=== PATIENT | female | born 1970 | race Caucasian/White ===

== ENCOUNTER → 2023-04-09 15:40 | Outpatient (REF) | payer BC, SELFPAY | LOC: HWRAD 15:40 | PROVIDERS: ATTENDING PHYSICIAN Internal Medicine | DX: M25.552 Pain in left hip (principal) | CPT/HCPCS: 73502 ==

== ENCOUNTER 2023-08-09 15:12 | Emergency (ER) | payer BC, SELFPAY ==
[2023-08-09 15:13] VITALS: BP 158/95
--- NOTE | 2023-08-09 15:47 | ED.GENMED ---
History of Present Illness
General
Chief Complaint: Musculo-Skeletal Complaint
Source: patient
Exam Limitations: none
Time Seen by Provider: 08/09/23 15:40
Travel History
Have you had any contact with someone who has COVID-19?: No
Do you have any symptoms of coronavirus? Fever > 100 degrees, chills, cough, shortness of breath, sore throat, loss of taste or smell, muscle aches, or headache?: No
History of Present Illness
History of Present Illness:
See MDM
Past History
Past History
ED Past Medical History: HTN, Hypothyroidism, Psychiatric (anxiety, Depression) and Other (Kidney stones, IBS, Anemia, Vertigo, Anemia, )
ED Past Surgical History: , Gynecological (Hysterectomy October 2019) and Urological (Stents)
Social History
Tobacco: Non-smoker
Alcohol: Occasional
Drug: None
Personal:
Living: with family (4 children)
Employment: Employed
Family History
Family History: Other (Noncontributory)
Phy Exam
Physical Exam
Physical Exam:
See MDM
Course
Orders/Labs/Results
Orders:
Orders
08/09/23 15:15
CR Knee- Right 4 Or More View* Urgent
Comment:
Reason For Exam: pain
08/09/23 15:45
Oxycodone/Acetaminophen [Percocet 5/325] 1 tablet PO NOW STA
US Periph Venous LOWER Ext RT Urgent
Comment:
Reason For Exam: Right popliteal pain
08/09/23 15:46
Ondansetron Orally Disint [Zofran Odt (Orally Disintegrating)] 4 mg PO NOW STA
Vital Signs
Initial and Last Documented VS:
Initial Vital Signs
Temp Pulse Resp BP Pulse Ox
98.2 F 78 20 158/95 98
08/09/23 15:13 08/09/23 15:13 08/09/23 15:13 08/09/23 15:13 08/09/23 15:13
Last Documented Vital Signs
Temp Pulse Resp BP Pulse Ox
98.2 F 78 20 158/95 98
08/09/23 15:13 08/09/23 15:13 08/09/23 15:13 08/09/23 15:13 08/09/23 15:13
MDM/Problems Addressed
Differential Diagnosis Includes:
HPI and MDM Narrative:
52-year-old female presenting with right knee pain. She localizes the pain behind her knee. Patient states that she noticed some pain few weeks ago when she had increased strain on it during a school event. Since then, she has been limping on it.
Today, she felt she heard a pop and has been having trouble bearing weight on her leg. Again, she localizes pain to the back of the knee and not the front of the knee.
X-ray was performed in triage. No obvious fracture. Palpation of the popliteal fossa elicits pain. Will obtain ultrasound rule DVT versus Perrin's cyst
Physical exam
General: Well appearing and non-toxic
HEENT: protecting airway
Neck: appears supple
CV: No evidence of cyanosis
Resp: No accessory muscle use
Abd: Non-distended
Extremities: No deformities. Right knee joint stable. Negative Ute test. Tenderness to popliteal fossa. Distal extremity neurovascular intact
Neuro: alert
Psych: Normal affect
Skin: Intact
Problems Addressed including Acute and Chronic Conditions affecting care:
1. Right knee pain
Acuity: acute
Prognosis: stable
Details: Given location of pain, will obtain ultrasound to rule out DVT versus Perrin's cyst
Updates
X-ray negative for fracture. Ultrasound negative for Perrin's cyst or DVT. Discussed the possibility of ligamentous injury. Will place in knee immobilizer and crutches. She has orthopedic follow-up in a few days
Differential Diagnosis (but not limited to): DVT, Perrin's cyst, ligament injury
Testing considered: CT knee
Drug therapy (if applicable): OTC meds, please see d/c instruction regarding Rx drugs
Amount and/or Complexity of Data Reviewed
Clinical info obtained from: Patient
External data reviewed: N/A
Labs I independently reviewed (but not limited to): N/A
Radiology: X-ray independently reviewed: Knee x-ray negative for acute fracture
Pulse Ox: not hypoxic
EKG independently reviewed: N/A
Steam Trap Worker: N/A
Critical Care: N/A
Risk of Complication:
Social Determinants of health: Good social support
Discussed with other providers: N/A
Escalation of Care includes Admit/Obs: After being observed in the Emergency Department, pt stable for discharge.
Occasional wrong word or 'sound a like' substitutions may have occurred due to the inherent limitations of voice recognition software. Read the chart carefully and recognize, using context, where substitutions have occurred.
*Critical Care Note
Total Time (30-74mins, 75-104mins- exclusive of procedures): Not Applicable
ED Attending Note
-
Portions of this chart may have been created with voice recognition software.� Occasional wrong word or��sound alike� substitutions may have occurred due to the inherent limitations of voice recognition software.
Discharge Plan
Departure
Patient Disposition: Home (Routine Discharge)
Date of Disposition: 08/09/23
Time of Disposition: 18:20
Patient with high blood pressure during this ER visit?: Yes
Discharge Problem:
Right knee sprain
Instructions: Knee Sprain (DC), BLOOD PRESSURE
Prescriptions:
New
oxycodone 5 mg tablet
5 mg PO Q8H PRN (Reason: Pain) Qty: 10 0RF
ondansetron 4 mg Tablet,Disintegrating
4 mg PO BIDPRN PRN (Reason: nausea/vomiting) Qty: 10 0RF
No Action
escitalopram oxalate 20 MG tablet
20 mg PO DAILY
lisinopril 20 MG tablet
20 mg PO DAILY
levothyroxine 137 MCG capsule
125 mcg PO DAILY
famotidine [Pepcid] 20 mg Tablet
20 mg PO DAILY
sulfamethoxazole-trimethoprim [Bactrim DS] 800-160 mg tablet
1 tab PO BID Qty: 6 0RF
Referrals:
Kodak Campbell MD [Family Provider] -
Activity Restrictions/Additional Instructions:
Please keep your orthopedic appointment and please return for worsening symptoms.
Interventions
Interventions:
*Risk Screen - Suicide Last Done: 08/09/23 15:13
*General Assessment Last Done: 08/09/23 15:13
*Neglect/Abuse Screening Last Done: 08/09/23 15:13
Discharge Date and Time
Print Language: SAO TOMEAN
[2023-08-09] MEDS: PERCOCET 5/325 1 TABLET PO (15:58)
[2023-08-09] MEDS: ZOFRAN ODT (ORALLY DISINTEGRATING) 4 MG PO (15:58)
== END 2023-08-09 19:06 | disposition home or self-care (01) ==
LOC: EMR 15:12
PROVIDERS: EMERGENCY PHYSICIAN Student in an Organized Health Care Education/Training Program; FAMILY PHYSICIAN Internal Medicine
DX: S83.91XA Sprain of unspecified site of right knee, initial encounter (principal); X58.XXXA Exposure to other specified factors, initial encounter; I10 Essential (primary) hypertension; F32.A Depression, unspecified; F41.9 Anxiety disorder, unspecified; E03.9 Hypothyroidism, unspecified; K58.9 Irritable bowel syndrome, unspecified; D64.9 Anemia, unspecified; Z87.442 Personal history of urinary calculi; Z88.1 Allergy status to other antibiotic agents; Z88.5 Allergy status to narcotic agent
CPT/HCPCS: 99284; 29505; 73564; 93971

== ENCOUNTER → 2024-04-24 15:22 | Outpatient (REF) | payer BC, SELFPAY | LOC: HWRAD 15:22 | PROVIDERS: ATTENDING PHYSICIAN Nurse Practitioner; FAMILY PHYSICIAN Internal Medicine | DX: J06.9 Acute upper respiratory infection, unspecified (principal) | CPT/HCPCS: 71046 ==

== ENCOUNTER → 2025-02-24 10:34 | Outpatient (REF) | payer OTHER, SELFPAY | LOC: HWWDC 10:34 | PROVIDERS: ATTENDING PHYSICIAN Obstetrics & Gynecology Gynecology; FAMILY PHYSICIAN Internal Medicine | DX: Z12.31 Encounter for screening mammogram for malignant neoplasm of breast (principal) | CPT/HCPCS: 77063; 77067 ==